=== PATIENT | male | born 1995 | race Caucasian/White ===

== ENCOUNTER 2019-08-17 13:11 | Emergency (ER) | payer MEDICAID ==
[~2019-08-17] VITALS: Ht 167.6 cm; Wt 65.8 kg
[2019-08-17 13:36] VITALS: BP 107/97
--- NOTE | 2019-08-17 14:30 | NUR ---
NO ANSWER IN ER LOBBY
[2019-08-17] MEDS ORDERED: ONDANSETRON 4 MG ODT PO ONE (15:45)
[2019-08-17] MEDS ORDERED: DICYCLOMINE HCL LIQUID 20 MG, ALUMINUM HYD/MAG/SIMETHICONE 30 ML, LIDOCAINE VISCOUS 2% ... PO ONE ×3 (15:45)
--- NOTE | 2019-08-17 19:00 | NUR ---
NO ANSWER IN ER LOBBY
== END 2019-08-17 14:30 | disposition left against medical advice (07) ==
LOC: MED 13:11
DX: R11.2 Nausea with vomiting, unspecified (principal); Z53.21 Procedure and treatment not carried out due to patient leaving prior to being seen by health care provider